=== PATIENT | male | born 1965 | race Caucasian/White ===

== ENCOUNTER 2019-06-15 04:39 | Observation (INO) | payer MEDICARE, OTHER ==
[2019-06-15] MEDS ORDERED: SODIUM CHLORIDE 0.9% 1,000 ML IV STA (04:47)
--- NOTE | 2019-06-15 05:02 | ED ---
Chest Pain HPI - General Source: patient, RN notes reviewed, old records reviewed Mode of arrival: ambulatory Limitations: no limitations - History of Present Illness MD Complaint: chest pain, other (Epigastric abdominal pain) -: hour(s) (5) Onset: during rest Pain Location: substernal Pain Radiation: abdomen Severity: moderate Severity scale (1-10): 5 Quality: sharp Consistency: constant Improves With: nothing Worsens With: nothing Anginal Symptoms: nausea Treatments Prior to Arrival: none <Paul Gonzalez - Last Filed: 06/15/19 07:23> <Lenny Hardin - Last Filed: 06/15/19 08:08> - General Chief Complaint: Nausea/Vomiting/Diarrhea Stated Complaint: Chest Pain/Nausea/Clammy Time Seen by Provider: 06/15/19 04:46 - History of Present Illness Initial Comments: This is a 53-year-old male the ER for evaluation of epigastric abdominal pain severe epigastric bowel pain and bloating with nausea no vomiting no shortness of breath patient's very anxious regarding this pain. Patient's no history of heart disease no history of surgery. No recent travel history or sick contacts. No fevers cough or congestion. Patient does have high blood pressure does have peripheral arterial disease. No history of heart disease. Patient states symptoms will "from Cipro 1 g of been persistent (Paul Gonzalez) - Related Data Home Medications Medication Instructions Recorded Confirmed Aspirin EC [Ecotrin] 162.5 mg PO QAM 06/05/16 06/15/19 Ranitidine HCl [Zantac] 75 mg PO QAM 06/15/19 06/15/19 Simvastatin [Zocor] 5 mg PO QAM 06/15/19 06/15/19 Allergies Allergy/AdvReac Type Severity Reaction Status Date / Time No Known Allergies Allergy Verified 06/15/19 07:28 Review of Systems ROS Other: All systems not noted in ROS Statement are negative. <Paul Gonzalez - Last Filed: 06/15/19 07:23> ROS Other: All systems not noted in ROS Statement are negative. <Lenny Hardin - Last Filed: 06/15/19 08:08> ROS Statement: Those systems with pertinent positive or pertinent negative responses have been documented in the HPI. EKG Findings - EKG Comments: EKG Findings:: EKG shows sinus rhythm rate of 70, PA 164, QRS 04, QTc 432 <Paul Gonzalez Last Filed: 06/15/19 07:23> Past Medical History Past Medical History: Hyperlipidemia Additional Past Medical History / Comment(s): re-occluded popiteal left, PAD History of Any Multi-Drug Resistant Organisms: None Reported Past Surgical History: Orthopedic Surgery Additional Past Surgical History / Comment(s): occluded popiteal repair - left Past Psychological History: No Psychological Hx Reported Smoking Status: Current every day smoker Past Alcohol Use History: Rare Past Drug Use History: Marijuana <Paul Gonzalez - Last Filed: 06/15/19 07:23> General Exam Limitations: no limitations General appearance: alert, in no apparent distress Head exam: Present: atraumatic, normocephalic, normal inspection Eye exam: Present: normal appearance, PERRL, EOMI. Absent: scleral icterus, conjunctival injection, periorbital swelling ENT exam: Present: normal exam, mucous membranes moist Neck exam: Present: normal inspection. Absent: tenderness, meningismus, lymphadenopathy Respiratory exam: Present: normal lung sounds bilaterally. Absent: respiratory distress, wheezes, rales, rhonchi, stridor Cardiovascular Exam: Present: regular rate, normal rhythm, normal heart sounds. Absent: systolic murmur, diastolic murmur, rubs, gallop, clicks GI/Abdominal exam: Present: soft, tenderness (Epigastric), normal bowel sounds. Absent: distended, guarding, rebound, rigid Extremities exam: Present: normal inspection, full ROM, normal capillary refill. Absent: tenderness, pedal edema, joint swelling, calf tenderness Back exam: Present: normal inspection Neurological exam: Present: alert, oriented X3, CN II-XII intact Psychiatric exam: Present: normal affect, normal mood Skin exam: Present: warm, dry, intact, normal color. Absent: rash <BrennasandraPaul whitlock - Last Filed: 06/15/19 07:23> Course <Paul Gonzalez Last Filed: 06/15/19 07:23> Vital Signs 06/15/19 06/15/19 06/15/19 04:42 05:43 07:18 Temperature 97.6 F 97.8 F Pulse Rate 86 69 76 Respiratory 24 17 18 Rate Blood Pressure 145/101 152/101 151/102 O2 Sat by Pulse 100 99 98 Oximetry - Reevaluation(s) Reevaluation #1: 06/15/19 07:18 Medical records reviewed (Paul Gonzalez) Reevaluation #2: 06/15/19 07:18 Patient's pain is improved controlled (Paul Gonzalez) Chest Pain MDM <Paul Gonzalez - Last Filed: 06/15/19 07:23> <Lenny Hardin - Last Filed: 06/15/19 08:08> - MDM 53 male the ER with severe anterior chest pain epigastric chest pain. Patient's history is PAD with surgery, patient be admitted for cardiac observation secondary significant history of atherosclerosis CTA chest is negative for dissection or PE (Paul Gonzalez) Patient care sign out to me by previous shift physician Dr. Baez. Final set follow-up with CT angios to rule out aortic dissection. CT angio of the chest is unremarkable. CT of the abdomen and pelvis shows no acute processes. There is an incidental finding of possible liver cyst and adrenal mass lesion. (Lenny Hardin) Critical Care Time Critical Care Time: Yes Total Critical Care Time: 31 <Paul Gonzalez - Last Filed: 06/15/19 07:23> Disposition Is patient prescribed a controlled substance at d/c from ED?: No <Paul Gonzalez - Last Filed: 06/15/19 07:23> <Lenny Hardin - Last Filed: 06/15/19 08:08> Clinical Impression: Peripheral vascular disease, Chest pain Disposition: ADMITTED IP TO THIS HOSP Condition: Undetermined
[2019-06-15] MEDS ORDERED: MORPHINE SULFATE 4 MG/ML SYRINGE IVP STA (05:07)
[2019-06-15 05:37] LABS: Basophils % (A) 0 %; Eosinophils # (A) 0.2 k/uL (0-0.7); Eosinophils % (A) 1 %; HCT 49.2 % (39.0-53.0); HGB 16.1 gm/dL (13.0-17.5); Lymphocytes # (A) 1.5 k/uL (1.0-4.8); Lymphocytes % (A) 13 %; MCH 29.3 pg (25.0-35.0); MCHC 32.7 g/dL (31.0-37.0); MCV 89.7 fL (80.0-100.0); Mean Platelet Volume 6.6; Monocytes # (A) 0.5 k/uL (0-1.0); Monocytes % (A) 4 %; Neutrophils # (A) 9.3 k/uL (1.3-7.7); Neutrophils % (A) 80 %; Platelet Count 329 k/uL (150-450); RBC 5.48 m/uL (4.30-5.90); RDW 13.4 % (11.5-15.5); WBC 11.6 k/uL (3.8-10.6)
--- NOTE | 2019-06-15 05:48 | XR ---
EXAM: XR Chest, 2 Views. CLINICAL HISTORY: Reason: Chest Pain TECHNIQUE: Frontal and lateral views of the chest. COMPARISON: No relevant prior studies available. FINDINGS: Lungs: Lung volumes are normal. There is no evidence of airspace consolidation. No pulmonary edema. Pleural spaces: Unremarkable. No pneumothorax. Heart: Unremarkable. No cardiomegaly. Mediastinum: No mediastinal widening or shift. Bones: Unremarkable. No acute fracture. IMPRESSION: No evidence of acute cardiopulmonary abnormality.
[2019-06-15 05:49] LABS: INR 0.9 (<1.2); Partial Thromboplastin Time 25.5 sec (22.0-30.0); Prothrombin Time 9.7 sec (9.0-12.0)
[2019-06-15] MEDS ORDERED: ONDANSETRON 4 MG/2 ML VIAL IVP STA (05:55)
[2019-06-15] MEDS ORDERED: LORazepam 2 MG/ML INJ IV STA (05:56)
[2019-06-15 06:27] LABS: ALT 25 U/L (21-72); AST 25 U/L (17-59); African American GFR (CKD) >90 (>60 ml/min/1.73 sqM); Albumin 4.7 g/dL (3.5-5.0); Alkaline Phosphatase 51 U/L (38-126); Anion Gap 13 mmol/L; Blood Urea Nitrogen 17 mg/dL (9-20); Calcium 10.4 mg/dL (8.4-10.2); Carbon Dioxide 21 mmol/L (22-30); Chloride 106 mmol/L (98-107); Creatine Kinase 127 U/L (55-170); Glucose 123 mg/dL (74-99); Potassium 4.2 mmol/L (3.5-5.1); Sodium 140 mmol/L (137-145); Total Bilirubin 0.5 mg/dL (0.2-1.3)
[2019-06-15 06:38] LABS: Creatine Kinase MB 0.5 ng/mL (0.0-2.4); Troponin I <0.012 ng/mL (0.000-0.034)
[2019-06-15] MEDS ORDERED: ASPIRIN 81 MG PO STA (07:24)
[2019-06-15] MEDS ORDERED: MAG HYDROX/AL HYDROX/SIMETH 30 ML, HYOSCYAMINE ELIXIR 10 ML, CIMETIDINE HCL 300 MG PO STA ×3 (07:24)
[2019-06-15] MEDS ORDERED: NITROGLYCERIN SL TABS 0.4 MG TAB SUBLINGUAL PRN (07:24)
--- NOTE | 2019-06-15 07:40 | CT ---
EXAMINATION TYPE: CT angio chest DATE OF EXAM: 06/15/2019 7:30 AM COMPARISON: HISTORY: Chest pain CT DLP: 436.9 mGycm Automated exposure control for dose reduction was used. CONTRAST: CTA scan of the thorax is performed with IV Contrast, patient injected with 100 mL of Isovue 370, pul monary embolism protocol. . FINDINGS: There are bullous changes in the upper lobes bilaterally. There is groundglass opacity in t he lower lobes bilaterally. This likely represents atelectatic change. There are 2 questionable subpl eural nodules on the left measuring 12.2 and 6.5 mm respectively. This may be simply part of the kimberly ent's atelectatic change. 2 pulmonary nodules cannot be excluded. A third, 5 mm subpleural nodule is noted in the right middle lobe best seen on image 106. There is no significant axillary, mediastinal or hilar adenopathy. There is no evidence of pulmonary embolus. The aorta is normal in caliber without evidence of dissection. There is no evidence of pleural or pericardial fluid. The heart is not enlarged. There is a small, sliding hiatal hernia. There is mild hypertrophic spondylosis within the spine. IMPRESSION: 1. THIS EXAMINATION IS NEGATIVE FOR PULMONARY EMBOLUS. 2. BULLOUS CHANGES IN THE UPPER LOBES BILATERALLY. 3. MULTIPLE QUESTIONABLE PULMONARY NODULES. SHORT-TERM FOLLOW-UP WOULD BE SUGGESTED.
--- NOTE | 2019-06-15 07:47 | CT ---
EXAMINATION TYPE: CT abdomen pelvis w con DATE OF EXAM: 06/15/2019 REFERENCE: NONE HISTORY: Pain HISTORY: Chest pain, nausea REFERENCE: NONE CT DLP: 715.4 mGy Automated exposure control for dose reduction was used. TECHNIQUE: Helical acquisition through the abdomen and pelvis was obtained following the oral ingesti on of without Oral Contrast and following intravenous administration of 100 mL of Isovue 370. The julianne a was reformatted in axial, coronal and sagittal projections. FINDINGS: Left lower lobe pulmonary nodules are not visualized on this examination. There is atelect atic change present at the lung bases. There is a small hiatal hernia present. Liver size is upper limits of normal. There is a 6.6 mm hypoattenuating lesion in the medial segment of the left lobe of the liver. This likely represents a cyst. The spleen and gallbladder are normal. The right adrenal gland is normal. There is a 1.9 cm left adrenal mass lesion. Both kidneys demonstrate function and appear morphologically normal. The pancreas is unremarkable. There is no significant retroperitoneal, iliac or inguinal adenopathy. The bladder is unremarkable. There is no significant diverticular change and there is no radiographic evidence of diverticulitis. The appendix is unremarkable. Small bowel loops are of normal caliber. There is no evidence of free fluid or free air. There is facet arthropathy and hypertrophic spondylosis within the spine. IMPRESSION: 1. NO ACUTE INFLAMMATORY ABNORMALITY. 2. NORMAL APPENDIX. 3. SMALL HIATAL HERNIA. 4. PROBABLE SMALL CYST WITHIN THE LEFT LOBE OF THE LIVER. 5 1.9 CM LEFT ADRENAL MASS LESION. 6. DEGENERATIVE CHANGE WITHIN THE SPINE.
--- NOTE | 2019-06-15 09:55 | CONS ---
CONSULTATION CHIEF COMPLAINT: Epigastric pain. This is a 53-year-old gentleman with history of dyslipidemia who presented to hospital complaining of epigastric discomfort. It is moderate in intensity, unrelated to exertion, unassociated with diaphoresis, without any clear-cut radiation. He has tenderness in the epigastric area. He had an EKG that showed sinus rhythm and is within normal limits and a CT scan of the chest that is negative for pulmonary embolism. One set of troponin is negative. His coronary risk factors are in the form of dyslipidemia and smoking. PAST MEDICAL HISTORY: Significant for dyslipidemia, PAD. MEDICATIONS: Medications include: 1. Zantac. 2. Zocor. 3. Aspirin. ALLERGIES: There are NO KNOWN DRUG ALLERGIES. FAMILY HISTORY: Negative for premature coronary artery disease. SOCIAL HISTORY: Significant for smoking. There is no history of EtOH abuse. He smokes marijuana. REVIEW OF SYSTEMS: HEENT is unremarkable. CARDIAC: As described above. RESPIRATORY: As described above. GI: Significant for epigastric pain. GENITOURINARY: Negative. ALLERGY/IMMUNOLOGIC: Negative. SKIN: Negative. MUSCULOSKELETAL: Negative. ENDOCRINE: Negative. DERMATOLOGICAL: Negative. CONSTITUTIONAL: Negative. ONCOLOGICAL: Negative. Rest of the system review is not relevant. PHYSICAL EXAMINATION: Comfortable at rest. Vital signs are stable. There is no jugular venous distention. Carotid upstroke is normal. There is no bruit. Chest exam reveals good air entry bilaterally. Heart exam reveals first and second heart sounds. No gallop. No murmur. No rub. Abdomen is soft, nontender. Examination of extremities did not reveal any edema. Peripheral pulses are felt. 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 ASSESSMENT: 1. Atypical chest pain. 2. Dyslipidemia. PLAN: Patient's epigastric pain is probably noncardiac in origin. I will obtain a 2D echo to assess LV function and wall motion. I will obtain two more sets of troponins. If this workup is negative, from cardiac standpoint he can be discharged home and arrange an outpatient stress test. The exact etiology for his epigastric pain is unclear. Primary will address this issue. MMAMBROCIOL / DARLENEN: [id number] /
--- NOTE | 2019-06-15 15:02 | P.HPIM ---
History of Present Illness This is a pleasant 53 years old male with past medical history of hyperlipidemia peripheral vascular disease, related to his long history of smoking cigarettes for 35 years that he had to quit 3 years ago because of his vascular disease. He follows up with Dr. Dudley and the [facility]. He presents this time because of abdominal pain of one-day duration. Yesterday at midnight patient started having epigastric abdominal pain, nonspecific nonradiating, 7-8/10 in severity coming down to 3/10. Associated with several times of nausea vomiting about 3-4 times per day with a green bullous vomitus and no blood. He had 2 firm bowel movement yesterday and none today. He hasn't eaten anything since yesterday. He feels hungry and he wants to eat. Patient says about 2 months ago he started having heartburn, his sister oliver ribed him Zantac which is confirmed with his doctor. About 2 weeks ago his have another heartburn and yesterday he have with these complaints as above. Vitals stable, blood pressure on the high side 149/91, he is slightly bradycardic at 54, afebrile. Labs showing mild leukocytosis at 11.6 K, INR 0.9, hemoglobin 16.1, creatinine and similar phallus within normal limits. Troponins x2 are negative. Liver enzymes not elevated. Lipase 95. EKG showing normal sinus rhythm at 70. CTA of the chest: No pulmonary embolus, small pulmonary nodules found 5 mm, 6.5 and 12.2 mm. Chest x-ray: No acute event. CT of the abdomen and pelvis with contrast: Small liver cyst, 1.5 cm left adrenal mass The emergency room patient was treated with pain medicine, Zofran, aspirin and IV fluid, at 100 mL per hour. Assistant Community Director already evaluated the patient, recommended echo and cardiac enzymes, and today they are negative patient Be discharged for outpatient stress test. Review of Systems CONSTITUTIONAL: No fever, no malaise, no fatigue. HEENT: No recent visual problems or hearing problems. Denied any sore throat. CARDIOVASCULAR: No orthopnea, PND, no palpitations, no syncope. PULMONARY: No shortness of breath, no cough, no hemoptysis. GASTROINTESTINAL: No diarrhea, no nausea, no vomiting, no abdominal pain. Normoactive bowel sounds. NEUROLOGICAL: No headaches, no weakness, no numbness. HEMATOLOGICAL: Denies any bleeding or petechiae. GENITOURINARY: Denies any burning micturition, frequency, or urgency. MUSCULOSKELETAL/RHEUMATOLOGICAL: Denies any joint pain, swelling, or any muscle pain. ENDOCRINE: Denies any polyuria or polydipsia. Past Medical History Past Medical History: Hyperlipidemia Additional Past Medical History / Comment(s): re-occluded popiteal left, PAD History of Any Multi-Drug Resistant Organisms: None Reported Past Surgical History: Orthopedic Surgery Additional Past Surgical History / Comment(s): occluded popiteal repair - left, left rotator cuff repair Past Psychological History: No Psychological Hx Reported Smoking Status: Current every day smoker Past Alcohol Use History: Rare Past Drug Use History: Marijuana Medications and Allergies Home Medications Medication Instructions Recorded Confirmed Type Aspirin EC [Ecotrin] 162.5 mg PO QAM 06/05/16 06/15/19 History Ranitidine HCl [Zantac] 75 mg PO QAM 06/15/19 06/15/19 History Simvastatin [Zocor] 5 mg PO QAM 06/15/19 06/15/19 History Allergies Allergy/AdvReac Type Severity Reaction Status Date / Time No Known Allergies Allergy Verified 06/15/19 07:28 Physical Exam Vitals: Vital Signs Temp Pulse Pulse Resp BP BP Pulse Ox 06/15/19 12:00 98 F 54 L 16 149/91 97 06/15/19 10:48 98 06/15/19 08:48 98.2 F 57 L 16 152/91 99 06/15/19 08:27 76 18 133/95 98 06/15/19 07:18 97.8 F 76 18 151/102 98 06/15/19 05:43 69 17 152/101 99 06/15/19 04:42 97.6 F 86 24 145/101 100 Intake and Output 06/14/19 06/15/19 06/15/19 22:59 06:59 14:59 Other: Voiding Method Toilet Weight 102.058 kg GENERAL: The patient is alert and oriented x3, not in any acute distress. Well developed, well nourished. HEENT: Pupils are round and equally reacting to light. EOMI. No scleral icterus. No conjunctival pallor. Normocephalic, atraumatic. No pharyngeal erythema. No thyromegaly. CARDIOVASCULAR: S1 and S2 present. No murmurs, rubs, or gallops. PULMONARY: Chest is clear to auscultation, no wheezing or crackles. -ABDOMEN: Soft, mild epigastric tenderness, no guarding or rebound tenderness, nondistended, normoactive bowel sounds. No palpable organomegaly. MUSCULOSKELETAL: No joint swelling or deformity. EXTREMITIES: No cyanosis, clubbing, or pedal edema. NEUROLOGICAL: Gross neurological examination did not reveal any focal deficits. SKIN: No rashes. Results CBC & Chem 7: 06/15/19 04:57 06/15/19 04:57 Labs: Abnormal Lab Results - Last 24 Hours (Table) 06/15/19 06/15/19 Range/Units 04:57 04:57 WBC 11.6 H (3.8-10.6) k/uL Neutrophils # 9.3 H (1.3-7.7) k/uL Carbon Dioxide 21 L (22-30) mmol/L Glucose 123 H (74-99) mg/dL Calcium 10.4 H (8.4-10.2) mg/dL Thrombosis Risk Factor Assmnt - Choose All That Apply Any of the Below Risk Factors Present?: Yes Each Factor Represents 1 point: Age 41-60 years Other Risk Factors: No Thrombosis Risk Factor Assessment Total Risk Factor Score: 1 Thrombosis Risk Factor Assessment Level: Low Risk Assessment and Plan Assessment: Epigastric abdominal pain and tenderness with recurrent nausea and vomiting 3 pulmonary nodules of 5, 6.5, and 12.2 mm respectively left adrenal mass of 1.9 cm Hyperlipidemia History of peripheral vascular disease Plan: This is a pleasant 53 years old male who presents with epigastric abdominal pain and tenderness. Continue with nothing by mouth, IV fluids and pain medication. Patient feels hungry and he wants to eat, we might start him on a clear liquid diet upon patient request and make him nothing by mouth after midnight again. We'll call GI consult for evaluation and order a liver ultrasound. 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 Risk including but not limited to cancer are explained to the patient and he verbalized understanding and acceptance. Labs and medication were reviewed.. Continue same treatment. Continue with symptomatic treatment. Resume home medication. Monitor lytes and vitals. DVT and GI prophylaxis. Further recommendations of the clinical course of the patie nt DVT prophylaxis: Subcutaneous heparin GI Prophylaxis: Protonix Prognosis is guarded
[2019-06-15] MEDS: ATORVASTATIN 80 MG TAB PO SCH (15:13)
[2019-06-15] MEDS: PANTOPRAZOLE 40 MG/10 ML VIAL IVP SCH (15:14)
[2019-06-15] MEDS: ONDANSETRON 4 MG/2 ML VIAL IVP PRN ×2 (15:17→20:02)
[2019-06-15] MEDS: HEPARIN SODIUM,PORCINE 5,000 UNIT/ML 1 ML VIAL SQ SCH (20:02)
[2019-06-15] MEDS ORDERED: MELATONIN 5 MG TABLET PO STA (20:11)
--- NOTE | 2019-06-15 20:12 | US ---
EXAMINATION TYPE: US liver DATE OF EXAM: 06/15/2019 COMPARISON: CT 2019 CLINICAL HISTORY: 53-year-old male epigastric pain and tenderness. Epigastric pain and N/V x 1 day TECHNIQUE: Multiple sonographic images of the right upper quadrant are obtained. FINDINGS: EXAM MEASUREMENTS: Liver Length: 19.9 cm Gallbladder Wall: 0.2 cm CBD: 0.3 cm Right Kidney: 11.5 x 4.7 x 5.3 cm Pancreas: obscured by overlying midline bowel gas Liver: enlarged, heterogeneous with 1.5cm hypoechoic area adjacent to gallbladder likely focal fatty sparing, 1.0cm cystic area left lobe Gallbladder: wnl Evidence for sonographic Castro's sign: no CBD: visualized portions wnl, limited by overlying bowel gas Right Kidney: No hydronephrosis. IMPRESSION: 1. Hepatomegaly (19.9 cm). Focal hypoechoic area adjacent to the gallbladder fossa probably represent s some focal fatty sparing in the setting of mild hepatic steatosis. 2. No cholelithiasis or biliary ductal dilatation. 3. A 6 month follow-up CT adrenal mass protocol can reassess the left adrenal nodule seen on CT of same day. Statistically, most likely a benign adrenal adenoma.
[2019-06-15] MEDS: MORPHINE SULFATE 2 MG/ML SYRINGE IVP PRN (20:57)
[2019-06-15] MEDS: SODIUM CHLORIDE 0.9% 1,000 ML IV SCH ×2 (20:59)
[2019-06-16] MEDS: SODIUM CHLORIDE 0.9% 1,000 ML IV SCH (05:49)
[2019-06-16 07:40] VITALS: RESP 16
[2019-06-16 08:03] LABS: Basophils # (A) 0.1 k/uL (0-0.2); Basophils % (A) 0 %; Eosinophils # (A) 0.7 k/uL (0-0.7); Eosinophils % (A) 6 %; HCT 46.5 % (39.0-53.0); HGB 15.1 gm/dL (13.0-17.5); Lymphocytes # (A) 2.1 k/uL (1.0-4.8); Lymphocytes % (A) 19 %; MCH 30.1 pg (25.0-35.0); MCHC 32.5 g/dL (31.0-37.0); MCV 92.4 fL (80.0-100.0); Mean Platelet Volume 6.4; Monocytes # (A) 0.7 k/uL (0-1.0); Monocytes % (A) 7 %; Neutrophils # (A) 7.5 k/uL (1.3-7.7); Neutrophils % (A) 67 %; Platelet Count 294 k/uL (150-450); RBC 5.03 m/uL (4.30-5.90); RDW 13.4 % (11.5-15.5); WBC 11.2 k/uL (3.8-10.6)
[2019-06-16 08:10] LABS: African American GFR (CKD) >90 (>60 ml/min/1.73 sqM); Anion Gap 9 mmol/L; Blood Urea Nitrogen 13 mg/dL (9-20); Calcium 8.9 mg/dL (8.4-10.2); Carbon Dioxide 25 mmol/L (22-30); Chloride 106 mmol/L (98-107); Cholesterol 216 mg/dL (<200); Glucose 107 mg/dL (74-99); HDL Cholesterol 42 mg/dL (40-60); LDL Cholesterol,Calculated 148 mg/dL (0-99); Potassium 4.1 mmol/L (3.5-5.1); Sodium 140 mmol/L (137-145); Triglycerides 131 mg/dL (<150)
[2019-06-16] MEDS: PANTOPRAZOLE 40 MG/10 ML VIAL IVP SCH (08:32)
[2019-06-16] MEDS ORDERED: ASPIRIN 325 MG TAB PO SCH (09:00)
--- NOTE | 2019-06-16 10:43 | PN ---
PROGRESS NOTE Rafiq is a 53-year-old gentleman who was admitted to hospital with epigastric pain and ruled out for myocardial infarction and is currently undergoing GI workup. On exam this morning, he appears comfortable at rest. His GI symptoms have improved. On exam, vital signs are stable. Chest exam reveals good air entry bilaterally. Heart exam reveals first and second heart sounds. No gallop. Exam of extremities did not reveal any edema. Peripheral pulses are felt. ASSESSMENT: 1. Atypical chest pain. 2. Epigastric pain. PLAN: I will review the echocardiogram. When he is stable GI knight, he can be discharged home and arrange outpatient followup. We will do an outpatient stress test on him. MMODL / IJN: [id number] /
--- NOTE | 2019-06-16 10:54 | ECHOF ---
Referral Reason:epigastric pain MEASUREMENTS -------- HEIGHT: 190.5 cm WEIGHT: 102.1 kg BP: 152/91 RVIDd: 3.4 cm (< 3.3) IVSd: 1.1 cm (0.6 - 1.1) LVIDd: 5.3 cm (3.9 - 5.3) LVPWd: 1.0 cm (0.6 - 1.1) IVSs: 1.8 cm LVIDs: 3.0 cm LVPWs: 1.4 cm LA Diam: 3.1 cm (2.7 - 3.8) LAESV Index (A-L): 20.70 ml/m Ao Diam: 3.5 cm (2.0 - 3.7) AV Cusp: 2.0 cm (1.5 - 2.6) MV EXCURSION: 17.007 mm (> 18.000) MV EF SLOPE: 79 mm/s (70 - 150) EPSS: 0.9 cm MV E Dhiraj: 0.84 m/s MV DecT: 228 ms MV A Dhiraj: 0.62 m/s MV E/A Ratio: 1.36 RAP: 5.00 mmHg RVSP: 23.43 mmHg FINDINGS -------- Sinus rhythm. This was a technically adequate study. The left ventricular size is normal. There is borderline concentric left ventricular hypertrophy. Overall left ventricular systolic function is normal with, an EF between 60 - 65 %. The right ventricle is mildly enlarged. Normal LA size by volume 22+/-6 ml/m2. The right atrium is normal in size. Interatrial and interventricular septum intact. The aortic valve is trileaflet and appears structurally normal. The mitral valve is normal. Mild tricuspid regurgitation present. Right ventricular systolic pressure is normal at < 35 mmHg. There is no pulmonic regurgitation present. The aortic root size is normal. Normal inferior vena cava with normal inspiratory collapse consistent with estimated right atrial pre ssure of 5 mmHg. There is no pericardial effusion. CONCLUSIONS -------- 1. Sinus rhythm. 2. This was a technically adequate study. 3. The left ventricular size is normal. 4. There is borderline concentric left ventricular hypertrophy. 5. Overall left ventricular systolic function is normal with, an EF between 60 - 65 %. 6. The right ventricle is mildly enlarged. 7. Normal LA size by volume 22+/-6 ml/m2. 8. The right atrium is normal in size. 9. Interatrial and interventricular septum intact. 10. The aortic valve is trileaflet and appears structurally normal. 11. The mitral valve is normal. 12. Mild tricuspid regurgitation present. 13. Right ventricular systolic pressure is normal at < 35 mmHg. 14. There is no pulmonic regurgitation present. 15. The aortic root size is normal. 16. Normal inferior vena cava with normal inspiratory collapse consistent with estimated right atrial pressure of 5 mmHg. 17. There is no pericardial effusion. KEYMODULE ASSEMBLY MACHINE TENDER: Christelle Seo RDCS
[2019-06-16] MEDS: ATORVASTATIN 80 MG TAB PO SCH (12:00)
[2019-06-16] MEDS: HEPARIN SODIUM,PORCINE 5,000 UNIT/ML 1 ML VIAL SQ SCH ×2 (12:00→19:53)
--- NOTE | 2019-06-16 18:11 | P.CONS ---
History of Present Illness - Reason for Consult Consult date: 06/16/19 Epigastric abdominal pain Requesting physician: Javi Cherry - Chief Complaint Epigastric abdominal pain - History of Present Illness 53-year-old male with a medical history significant for hyperlipidemia, peripheral vascular disease, previous tobacco abuse as well as recent history of GERD who presented to the hospital with epigastric abdominal pain. He reports that he had suffered similar pain but milder in intensity a few months back at which time he was started on ranitidine for which he takes 75 mg daily. He thought that the symptoms were well controlled however reports waking up at midnight prior to presentation with severe 7 out of 8 epigastric abdominal pain. No radiation of the pain. But he did have associated nausea and vomiting. No change in bowel habits reported. He has not tried any PPI therapy in the past. He has no prior history of EGD or colonoscopy reported. No history of peptic ulcer disease. He does take 0.5 aspirin daily. Laboratory evaluation on presentation was significant for WBC 11.2, hemoglobin 15.1, platelet count 294,0 00, total bilirubin 0.5, alkaline phosphatase 51, AST 25 and MALT 25. Patient currently reporting the pain is improved. No further nausea or vomiting. No melena reported. He has tolerated his diet. Review of Systems REVIEW OF SYSTEMS: CONSTITUTIONAL: Denies any fevers, chills, weight change or fatigue. CARDIOVASCULAR: Denies any chest pain, palpitations high or low blood pressures RESPIRATORY: Denies any shortness of breath, hemoptysis or cough. GENITOURINARY: No dysuria or hematuria. MUSCULOSKELETAL: No weakness reported. SKIN: Denies any new rashes or lesions, jaundice or pallor. PSYCHIATRIC: Denies any depression or anxiety. NEUROLOGY: Denies headache, denies any new focal deficits. EARS/NOSE/THROAT: No recent hearing change, congestion, nasal discharge or sore throat. EYES: No pain in eyes, discharge or change in vision. GASTROINTESTINAL: As per HPI. Past Medical History Past Medical History: Hyperlipidemia Additional Past Medical History / Comment(s): re-occluded popiteal left, PAD History of Any Multi-Drug Resistant Organisms: None Reported Past Surgical History: Orthopedic Surgery Additional Past Surgical History / Comment(s): occluded popiteal repair - left, left rotator cuff repair Past Psychological History: No Psychological Hx Reported Smoking Status: Current every day smoker Past Alcohol Use History: Rare Past Drug Use History: Marijuana Medications and Allergies Home Medications Medication Instructions Recorded Confirmed Type Aspirin EC [Ecotrin] 162.5 mg PO QAM 06/05/16 06/15/19 History Ranitidine HCl [Zantac] 75 mg PO QAM 06/15/19 06/15/19 History Simvastatin [Zocor] 5 mg PO QAM 06/15/19 06/15/19 History Allergies Allergy/AdvReac Type Severity Reaction Status Date / Time No Known Allergies Allergy Verified 06/15/19 07:28 Physical Exam Vitals: Vital Signs Temp Pulse Resp BP BP Pulse Ox 06/16/19 15:54 98.1 F 67 16 138/56 97 06/16/19 12:29 98 06/16/19 07:39 98.5 F 67 16 122/66 97 06/16/19 03:46 98.8 F 55 L 18 135/84 97 06/16/19 00:00 98.1 F 66 18 148/77 96 06/15/19 19:40 98.4 F 62 18 154/74 95 Intake and Output 06/16/19 06/16/19 06/16/19 06:59 14:59 22:59 Other: Voiding Method Toilet Toilet Toilet # Voids 2 1 1 On physical examination, patient appears comfortable in no apparent distress. HEAD: Normocephalic, atraumatic. EYES: No scleral icterus. No conjunctival injection. MOUTH: No lesions, tongue midline. NECK: Trachea midline, no gross abnormalities. CHEST: Clear to auscultation with no wheezing or rhonchi appreciated. HEART: Regular rate and rhythm. ABDOMEN: Soft, obese. Bowel sounds are positive. No organomegaly. No guarding or rigidity. EXTREMITIES: No pedal edema. SKIN: No rashes, no jaundice. NEUROLOGIC: Alert and oriented x3. No focal deficits. Results CBC & Chem 7: 06/16/19 07:45 06/16/19 07:45 Labs: Abnormal Lab Results - Last 24 Hours (Table) 06/16/19 06/16/19 Range/Units 07:45 07:45 WBC 11.2 H (3.8-10.6) k/uL Glucose 107 H (74-99) mg/dL Cholesterol 216 H (<200) mg/dL LDL Cholesterol, Calc 148 H (0-99) mg/dL CT scan - abdomen: report reviewed (Computed tomography scan abdomen significant for adrenal mass lesion, hepatic cyst, and small hiatal hernia.) Assessment and Plan (1) Epigastric abdominal pain Narrative/Plan: 53-year-old who presented with epigastric abdominal pain. Recently started on ranitidine 75 mg daily for GERD. Symptoms were more intense and previously reported. Denied any change in bowel habits, blood per rectum or melena. The patient has not been on PPI therapy in the past CT of the abdomen was significant for a small hepatic cysts, small hiatal hernia and adrenal mass lesion. Symptoms likely related to uncontrolled gastroesophageal reflux disease with the patient reporting eating fatty foods including chowder and hotdogs prior to symptoms at night. Differential also includes peptic ulcer disease, functional bowel disorder or other etiology. Cardiac workup has been negative today. Current Visit: Yes Status: Acute Code(s): R10.13 - EPIGASTRIC PAIN SNOMED Code(s): 59192653 (2) GERD (gastroesophageal reflux disease) Current Visit: Yes Status: Acute Code(s): K21.9 - GASTRO-ESOPHAGEAL REFLUX DISEASE WITHOUT ESOPHAGITIS SNOMED Code(s): 121694364 Plan: Supportive care Okay for diet as tolerated GERD lifestyle modifications discussed Would recommend Protonix daily with ranitidine at night Patient is due for [facility] which he [facility], would recommend EGD at that time Thank you for allowing us to participate in the care of this patient, the GI service will stand by, please call us back with any questions or concerns
[2019-06-16] MEDS: MORPHINE SULFATE 2 MG/ML SYRINGE IVP PRN (19:53)
[2019-06-16] MEDS ORDERED: FAMOTIDINE 20 MG TAB PO SCH (21:00)
[2019-06-17 07:44] VITALS: BP 165/99; PULSE 65; TEMP 97.7
[2019-06-17] MEDS: PANTOPRAZOLE 40 MG/10 ML VIAL IVP SCH (08:29)
[2019-06-17] MEDS: ATORVASTATIN 80 MG TAB PO SCH (08:29)
[2019-06-17] MEDS: HEPARIN SODIUM,PORCINE 5,000 UNIT/ML 1 ML VIAL SQ SCH (08:30)
[2019-06-17] MEDS: MORPHINE SULFATE 2 MG/ML SYRINGE IVP PRN (08:41)
[2019-06-17] MEDS ORDERED: ASPIRIN 81 MG PO SCH (09:00)
[2019-06-17] MEDS ORDERED: METOPROLOL TARTRATE 12.5 MG TAB PO SCH (09:00)
--- NOTE | 2019-06-17 11:36 | P.PN ---
Subjective This is a pleasant 53 years old male with past medical history of hyperlipidemia peripheral vascular disease, related to his long history of smoking cigarettes for 35 years that he had to quit 3 years ago because of his vascular disease. He follows up with Dr. Dudley and the [facility]. He presents this time because of abdominal pain of one-day duration. Yesterday at midnight patient started having epigastric abdominal pain, nonspecific nonradiating, 7-8/10 in severity coming down to 3/10. Associated with several times of nausea vomiting about 3-4 times per day with a green bullous vomitus and no blood. He had 2 firm bowel movement yesterday and none today. He hasn't eaten anything since yesterday. He feels hungry and he wants to eat. Patient says about 2 months ago he started having heartburn, his sister prescribed him Zantac which is confirmed with his doctor. About 2 weeks ago his have another heartburn and yesterday he have with these complaints as above. Vitals stable, blood pressure on the high side 149/91, he is slightly bradycardic at 54, afebrile. Labs showing mild leukocytosis at 11.6 K, INR 0.9, hemoglobin 16.1, creatinine and similar phallus within normal limits. Troponins x2 are negative. Liver enzymes not elevated. Lipase 95. EKG showing normal sinus rhythm at 70. CTA of the chest: No pulmonary embolus, small pulmonary nodules found 5 mm, 6.5 and 12.2 mm. Chest x-ray: No acute event. CT of the abdomen and pelvis with contrast: Small liver cyst, 1.5 cm left adrenal mass The emergency room patient was treated with pain medicine, Zofran, aspirin and IV fluid, at 100 mL per hour. Parking Enforcement Manager already evaluated the patient, recommended echo and cardiac enzymes, and today they are negative patient Be discharged for outpatient stress test. 03/17/2019 ( Date of service for this note) pt is feeling better , less epigastric pain, no nausea or vomiting , he is tolerated diet well and is advanced as tolerated , he is hemodynamically stable. leukocytosis is improving . case discussed with GI team , continue with medical management with symptomatic treatment and antacid ros CONSTITUTIONAL: No fever, no malaise, no fatigue. HEENT: No recent visual problems or hearing problems. Denied any sore throat. CARDIOVASCULAR: No orthopnea, PND, no palpitations, no syncope. PULMONARY: No shortness of breath, no cough, no hemoptysis. GASTROINTESTINAL: No diarrhea, no nausea, no vomiting, no abdominal pain. Normoactive bowel sounds. NEUROLOGICAL: No headaches, no weakness, no numbness. HEMATOLOGICAL: Denies any bleeding or petechiae. GENITOURINARY: Denies any burning micturition, frequency, or urgency. MUSCULOSKELETAL/RHEUMATOLOGICAL: Denies any joint pain, swelling, or any muscle pain. ENDOCRINE: Denies any polyuria or polydipsia. Active Medications Generic Name Dose Route Start Last Admin Trade Name Freq PRN Reason Stop Dose Admin Aspirin 81 mg 06/17/19 09:00 06/17/19 08:29 Aspirin PO 81 mg DAILY ADAIR Administration Atorvastatin Calcium 80 mg 06/15/19 09:00 06/17/19 08:29 Lipitor PO Not Given DAILY ADAIR Famotidine 40 mg 06/16/19 21:00 06/16/19 19:53 Pepcid PO 40 mg HS ADAIR Administration Heparin Sodium (Porcine) 5,000 unit 06/15/19 21:00 06/17/19 08:30 Heparin SQ 5,000 unit Q12HR ADAIR Administration Sodium Chloride 1,000 mls @ 75 mls/hr 06/15/19 07:30 06/16/19 05:49 Saline 0.9% IV Not Given .[id number] [facility] Metoprolol Tartrate 12.5 mg 06/17/19 09:00 06/17/19 08:29 Lopressor PO 12.5 mg BID ADAIR Administration Morphine Sulfate 2 mg 06/15/19 15:01 06/17/19 08:41 Morphine Sulfate (Inj) IVP 2 mg Q6H PRN Administration Pain/Discomfort Nitroglycerin 0.4 mg 06/15/19 07:24 Nitrostat SUBLINGUAL Q5M PRN Chest Pain Ondansetron HCl 4 mg 06/15/19 15:07 06/15/19 20:02 Zofran IVP 4 mg Q6HR PRN Administration Nausea And Vomiting Pantoprazole Sodium 40 mg 06/15/19 15:15 06/17/19 08:29 Protonix IVP 40 mg DAILY ADAIR Administration Objective - Vital Signs Vital signs: Vital Signs Temp 97.7 F 06/17/19 07:43 Pulse 65 06/17/19 08:00 Resp 16 06/17/19 08:00 BP 165/99 06/17/19 07:43 Pulse Ox 99 06/17/19 07:43 Intake & Output 06/16/19 06/17/19 06/17/19 18:59 06:59 18:59 Intake Total 600 Balance 600 Intake: Intake, IV Titration 600 Amount Sodium Chloride 0.9% 1, 600 000 ml @ 75 mls/hr IV . [id number] [facility] Rx#:[id number] Other: Voiding Method Toilet Toilet Toilet # Voids 1 1 1 - Exam GENERAL: The patient is alert and oriented x3, not in any acute distress. Well developed, well nourished. HEENT: Pupils are round and equally reacting to light. EOMI. No scleral icterus. No conjunctival pallor. Normocephalic, atraumatic. No pharyngeal erythema. No thyromegaly. CARDIOVASCULAR: S1 and S2 present. No murmurs, rubs, or gallops. PULMONARY: Chest is clear to auscultation, no wheezing or crackles. -ABDOMEN: Soft, mild epigastric tenderness, no guarding or rebound tenderness, nondistended, normoactive bowel sounds. No palpable organomegaly. MUSCULOSKELETAL: No joint swelling or deformity. EXTREMITIES: No cyanosis, clubbing, or pedal edema. NEUROLOGICAL: Gross neurological examination did not reveal any focal deficits. SKIN: No rashes. - Labs CBC & Chem 7: 06/16/19 07:45 06/16/19 07:45 Assessment and Plan Assessment: Epigastric abdominal pain and tenderness with recurrent nausea and vomiting 3 pulmonary nodules of 5, 6.5, and 12.2 mm respectively left adrenal mass of 1.9 cm Hyperlipidemia History of peripheral vascular disease Plan: This is a pleasant 53 years old male who presents with epigastric abdominal pain and tenderness. Continue with nothing by mouth, IV fluids and pain medication. advance diet as tolerated. GI consult input is appreciated. Pain management Patient was informed about 3 pulmonary nodules and left adrenal mass, with recommendation for him to follow-up with his pcp doctor and electrical project engineer as an outpatient for reevaluation. Risk including but not limited to cancer are explained to the patient and he verbalized understanding and acceptance. Labs and medication were reviewed.. Continue same treatment. Continue with symptomatic treatment. Resume home medication. Monitor lytes and vitals. DVT and GI prophylaxis. Further recommendations of the clinical course of the patient pt problems and management plan was discussed with him and he verbalized understanding and acceptance DVT prophylaxis: Subcutaneous heparin GI Prophylaxis: Protonix pt is counseled whenever he is discharge to follow up with GI team and he agrees, risks including but not limited to peptic ulcer disease ,GERD and cancer are explained for the pt and he verbalized understanding and acceptance also pt is counseled to follow up with his pcp in one week and he agrees Prognosis is guarded addendum (on next day of writing this note, monday06/17/2019) i called the [facility] and unfortunately was not available today , so the office referred me to [facility] and i told her about his presentation and the need for outpt follow up with [employer]orer [employer] for his possible GERD and liver lesion . also for electrical project engineer for his lung nodules, and general surgeon or repeat US of the abd for follow up of his left adrenal mass , and she kindly took note of these and she is going to inform tomorrow when he is back . also the office are all booked and they will try to find a spot and call him soon.
--- NOTE | 2019-06-17 11:51 | P.PN ---
Subjective This is a pleasant 53-year-old male past medical history significant for dyslipidemia, peripheral vascular disease and chronic nicotine dependence. He denies prior history of CAD. Currently maintained on atorvastatin 80 mg daily and aspirin 81 mg daily. He is seen and examined resting comfortably in bed in no acute distress. He has been seen by Dr Lares and started on protonix. He denies any further symptoms of chest or epigastric discomfort. Blood pressure 165/99 heart rate 65. GENERAL: Well-appearing, well-nourished and in no acute distress. NECK: Supple without JVD or thyromegaly. LUNGS: Breath sounds clear to auscultation bilaterally. Respiration equal and unlabored. No wheezes, rales or rhonchi. HEART: Regular rate and rhythm without murmurs, rubs or gallops. S1 and S2 heard. EXTREMITIES: Normal range of motion, no edema. No clubbing or cyanosis. Peripheral pulses intact. ASSESSMENT Chest pain, atypical. An acute event has been ruled out. Epigastric pain Hypertension Dyslipidemia PLAN Initiate on small dose of beta sharif. Overall stable from a cardiac perspective. Outpatient stress testing once his endoscopies are complete. Follow up with Dr. Vasquez in 2 weeks. Nurse Practitioner note has been reviewed, I agree with a documented findings and plan of care. Patient was seen and examined. Objective - Vital Signs Vital signs: Vital Signs Temp 97.7 F 06/17/19 07:43 Pulse 65 06/17/19 08:00 Resp 16 06/17/19 08:00 BP 165/99 06/17/19 07:43 Pulse Ox 99 06/17/19 07:43 Intake & Output 06/16/19 06/17/19 06/17/19 18:59 06:59 18:59 Intake Total 600 Balance 600 Intake: Intake, IV Titration 600 Amount Sodium Chloride 0.9% 1, 600 000 ml @ 75 mls/hr IV . [id number] ADAIR Rx#:[id number] Other: Voiding Method Toilet Toilet Toilet # Voids 1 1 1 - Labs CBC & Chem 7: 06/16/19 07:45 06/16/19 07:45
--- NOTE | 2019-06-17 15:19 | P.DS ---
Providers Date of admission: 06/15/19 07:24 Attending physician: Fany Mirza Consults: 06/15/19 07:24 Consult Physician Urgent Consulting Provider: Helena Oconnor Consult Reason/Comments: cp Do you want consulting provider notified?: Yes Primary care physician: [facility] Hospital Course: 53-year-old the female was admitted for chest pain appears to be secondary to peptic ulcer disease or gastritis. Rule out acute current syndromes, ruled out pulmonary embolism patient does have significant peripheral vascular disease for which patient is on a statin and aspirin. Patient was discharged on 2 weeks of her Prilosec after that he can resume his ranitidine. PHYSICAL EXAMINATION: GENERAL: The patient is alert and oriented x3, not in any acute distress. Well developed, well nourished. HEENT: Pupils are round and equally reacting to light. EOMI. No scleral icterus. No conjunctival pallor. Normocephalic, atraumatic. No pharyngeal erythema. No thyromegaly. CARDIOVASCULAR: S1 and S2 present. No murmurs, rubs, or gallops. PULMONARY: Chest is clear to auscultation, no wheezing or crackles. ABDOMEN: Soft, nontender, nondistended, normoactive bowel sounds. No palpable organomegaly. MUSCULOSKELETAL: No joint swelling or deformity. EXTREMITIES: No cyanosis, clubbing, or pedal edema. NEUROLOGICAL: Gross neurological examination did not reveal any focal deficits. SKIN: No rashes. Please refer to Dr. bird dictation for further details of hospitalization course Patient Condition at Discharge: Undetermined Plan - Discharge Summary Discharge Rx Participant: No New Discharge Prescriptions: New Omeprazole [PriLOSEC] 40 mg PO AC-BRKFST #14 capsule. Discontinued Ranitidine HCl [Zantac] 75 mg PO QAM No Action Aspirin EC [Ecotrin] 162.5 mg PO QAM Simvastatin [Zocor] 5 mg PO QAM Discharge Medication List Aspirin EC [Ecotrin] 162.5 mg PO QAM 06/05/16 [History] Simvastatin [Zocor] 5 mg PO QAM 06/15/19 [History] Omeprazole [PriLOSEC] 40 mg PO AC-BRKFST #14 capsule. 06/17/19 [Rx] Follow up Appointment(s)/Referral(s): Robert Hendrix DO [Doctor of Osteopathic Medicine] - 1 Week (pulmonray nodules ) iVvek Lares MD [STAFF PHYSICIAN] - 1 Week (gastroenteroloigist ) [facility] [Primary Care Provider] - 1-2 days (the office will contact you for appointment ) Discharge Disposition: HOME SELF-CARE
== END 2019-06-17 15:11 | disposition home or self-care (01) ==
LOC: EC 04:39 → 1SOBS 07:24
PROVIDERS: ADMIT Hospitalist; ATTEND Hospitalist
DX: R10.13 Epigastric pain (principal); R07.89 Other chest pain; D72.829 Elevated white blood cell count, unspecified; I10 Essential (primary) hypertension; K21.9 Gastro-esophageal reflux disease without esophagitis; E27.9 Disorder of adrenal gland, unspecified; K76.89 Other specified diseases of liver; R11.2 Nausea with vomiting, unspecified; E78.5 Hyperlipidemia, unspecified; R91.8 Other nonspecific abnormal finding of lung field; I73.9 Peripheral vascular disease, unspecified; Z87.891 Personal history of nicotine dependence; Z79.82 Long term (current) use of aspirin; Z79.899 Other long term (current) drug therapy
CPT/HCPCS: 96372 ×2; 96375 ×2; 96376 ×3; 96374; 99291; 36415; 93005; 93306; 83880; 80061; 80053; 80048; 82550; 82553; 83690; 83735; 84484; 85025 ×2; 85610; 85730; 71046; 76705; 71275; 74177; G0378 ×3; J2060; J2270 ×4; J1644 ×3; J2405; C9113 ×3; Q9967

== ENCOUNTER → 2019-07-13 | Outpatient (CLI) | payer OTHER ==
--- NOTE | 2019-07-13 13:29 | CT ---
EXAMINATION TYPE: CT chest w con DATE OF EXAM: 07/13/2019 COMPARISON: 06/15/2019 HISTORY: Follow up lung nodules CT DLP: 509.1 mGycm, Automated exposure control for dose reduction was used. CONTRAST: Performed injected with 100 mL of Isovue 300. TECHNIQUE: Axial images were obtained at 5 mm thick sections. Reconstructed images are reviewed on Playfire computer in the coronal plane. FINDINGS: Portion of the thyroid visualized is normal. There is a 0.4 cm nodule within the lateral left lung base. Series 4 image 53. There is a 0.6 cm nodu le within the periphery of the left lower lobe. Series 4 image 54. There is a pleural-based nodule a t the right lateral lung base measuring 0.6 cm. Series 4 image 56. There is some streak opacities within the left lower lobe may be some atelectasis. No enlarged mediastinal or hilar adenopathy is evident. The ascending aorta diameter at the level o f the main pulmonary artery is 3.6 cm. The main pulmonary artery diameter at the bifurcation is 2.[address] sections are obtained through the upper abdomen. Left adrenal gland is enlarged measuring 1.7 cm. IMPRESSIONS: 1. Stable appearing nodules bilateral peripheral lung bases. 2. Streak atelectasis left lower lobe
== END | disposition home or self-care (01) ==
LOC: RADCTMAIN 07:39
PROVIDERS: ATTEND Internal Medicine Critical Care Medicine
DX: R91.8 Other nonspecific abnormal finding of lung field (principal); J98.11 Atelectasis
CPT/HCPCS: 71260; Q9967

== ENCOUNTER 2019-07-16 09:35 | Day surgery (SDC) | payer OTHER ==
[2019-07-12 14:07] VITALS: BMI 28.5
[~2019-07-16 09:35] MED LIST: LACTATED RINGERS 1,000 ML IV SCH
[2019-07-16] MEDS ORDERED: LIDOCAINE 1% 20 ML VIAL (10MG/ML) FOR IV START INTRADERMA ONE (09:55)
[2019-07-16 09:58] VITALS: RESP 16; TEMP 98
[2019-07-16] MEDS ORDERED: MIDAZOLAM 2 MG/2 ML VIAL ONE (11:39)
[2019-07-16] MEDS ORDERED: PROPOFOL 10 MG/ML 20 ML VIAL IV ONE (11:39)
[2019-07-16] MEDS ORDERED: fentaNYL (PF) 50 MCG/ML 2 ML AMP ONE (11:39)
[2019-07-16] MEDS ORDERED: LIDOCAINE 1% INJ 10MG/ML (20 ML MDV) ONE (11:39)
[2019-07-16] MEDS ORDERED: SODIUM CHLORIDE 0.9% 500 ML 500 ML IV ONE ×2 (11:58→13:04)
--- NOTE | 2019-07-16 13:16 | P.PCN ---
Date of Procedure: 07/16/19 Description of Procedure: Brief history: Patient is a pleasant scheduled for an elective upper endoscopy as well as colonoscopy as a part of evaluation of suspected gastric ulcer, epigastric abdominal pain, GERD and history of polyps. Patient denies any prior EGD. Was seen in the observation unit for epigastric abdominal pain at which time he was on H2 sharif therapy which was increased PPI therapy. Reports symptoms are improved since then. Denies any prior colonoscopy. Procedure performed: Esophagogastroduodenoscopy with biopsy Colonoscopy with polypectomy Estimated blood loss: Minimal. Preoperative diagnosis: Suspected gastric ulcer, epigastric pain, GERD, history colon polyps Anesthesia: MAC Procedure: After informed consent was obtained from the patient was brought into the endoscopy unit and IV sedation was administered by anesthesia under continuous monitoring. Initially upper endoscopy was done. The Olympus GF 190 video endoscope was inserted inserted into the mouth and esophagus intubated without any difficulty and was gradually advanced into the stomach and duodenum and carefully examined. The bulb and second part of the duodenum appeared normal, with biopsies taken. The scope was then withdrawn into the stomach adequately insufflated with air and upon careful examination the antrum and body, cardia and fundus appeared normal except for diffuse mild erythema in the antrum and body suggestive of mild gastritis with biopsies of antrum and body taken. The scope was then withdrawn into the esophagus. The GE junction was located at 40 cm to the incisors, with biopsy of an irregular Z line taken to rule out short segment Vasquez's esophagus. It appeared regular with no erythema erosions or ulcerations. Rest of the esophagus appeared normal. Patient tolerated the procedure well. At this time the patient continued to remain sedation. Initial digital rectal examination was normal. Olympus CF 190 video colonoscope was then inserted into the rectum and gradually advanced to the cecum without any difficulty. Careful examination was performed as the scope was gradually being withdrawn. The prep was excellent. The cecum, ascending colon, transverse colon, descending colon, sigmoid colon and rectum appeared normal. 2 diminutive 2 mm ascending colon polyps removed with cold forcep polypectomy. One 5 mm sessile IC valve polyp removed with hot snare polypectomy. 2 small sessile rectal polyps measuring 2 and 3 mm removed with cold snare polypectomy. Retroflexion was performed in the rectum and no lesions were noted. Patient tolerated the procedure well. Impression: 1. Polypectomy of 2 diminutive ascending polyps with cold forcep 2. Polypectomy of one sessile IC valve polyp with hot snare 3. Polypectomy of two small sessile rectal polyps with cold snare. Recommendations: Findings of this examination were discussed with the patient. Okay to resume diet. Await pathology from polypectomies. Anticipate repeat endoscopy in 3 years pending pathology from polypectomies.
[2019-07-16 13:30] VITALS: BP 129/78; PULSE 78
== END 2019-07-16 13:46 | disposition home or self-care (01) ==
LOC: ORWHC2ENDO 09:35
PROVIDERS: ATTEND Internal Medicine
DX: Z12.11 Encounter for screening for malignant neoplasm of colon (principal); K29.50 Unspecified chronic gastritis without bleeding; K20.0 Eosinophilic esophagitis; D12.2 Benign neoplasm of ascending colon; D12.0 Benign neoplasm of cecum; K62.1 Rectal polyp; K21.9 Gastro-esophageal reflux disease without esophagitis; Z86.010 Personal history of colon polyps; Z87.891 Personal history of nicotine dependence; Z83.2 Family history of diseases of the blood and blood-forming organs and certain disorders involving the immune mechanism; E78.5 Hyperlipidemia, unspecified; I73.9 Peripheral vascular disease, unspecified; Z79.82 Long term (current) use of aspirin; Z79.899 Other long term (current) drug therapy
CPT/HCPCS: 45380; 88305; 45385; 43239; J2250; J2001; J3010; J2704

== ENCOUNTER → 2020-01-30 | Outpatient (CLI) | payer OTHER ==
--- NOTE | 2020-01-30 08:06 | CT ---
EXAMINATION TYPE: CT chest w con DATE OF EXAM: 01/30/2020 COMPARISON: Chest CT dated July 13, 2019. HISTORY: Follow up scan per patient. CT DLP: 508.2 mGycm. Automated Exposure Control for Dose Reduction was Utilized. TECHNIQUE: CT scan of the thorax is performed following with IV Contrast, patient injected with 100 mL of Isovue 300. FINDINGS: LUNGS: Mild to borderline moderate underlying emphysematous change with scattered upper lung blebs al robert the periphery. Mild to moderate linear scarring in both bases. No suspicious new nodules or michele s. Stable 4 mm lateral left basilar groundglass nodule image 57. Stable 4 x 4 millimeter subpleural n odule nodular thickening lateral right lung base on axial image 56. No pleural effusion or pneumothor ax seen bilaterally. No suspicious new consolidation or groundglass opacity. MEDIASTINUM: There are no greater than 1 cm hilar or mediastinal lymph nodes. No cardiomegaly or pe ricardial effusion is seen. Coronary artery calcification again seen which is noted marked for under lying coronary artery disease. OTHER: Occasional subcentimeter hypodense lesion left hepatic dome too small to further characterize. Stable 1.6 cm left adrenal mass axial image 65. Slight underlying scoliosis with mild/moderate multi level spurring there is redemonstrated. Small degree of subareolar gynecomastia. Metallic anchors lef t humeral head from prior rotator cuff surgery noted on localizer. IMPRESSION: Chronic changes without acute pulmonary process. Stable under 5 mm nodules presumed benig n. No new suspicious nodules noted.
== END | disposition home or self-care (01) ==
LOC: RADCTMAIN 07:20
PROVIDERS: ATTEND Internal Medicine Critical Care Medicine
DX: R91.8 Other nonspecific abnormal finding of lung field (principal)
CPT/HCPCS: 71260; Q9967

== ENCOUNTER 2022-05-20 09:58 | Day surgery (SDC) | payer OTHER ==
[2022-05-20 10:35] VITALS: TEMP 97.6
[2022-05-20] MEDS ORDERED: PROPOFOL 10 MG/ML 20 ML VIAL IV ONE (11:44)
[2022-05-20] MEDS ORDERED: LIDOCAINE 2% INJ 20 MG/ML (2 ML VIAL) ONE (11:44)
--- NOTE | 2022-05-20 12:02 | P.PCN ---
Date of Procedure: 05/20/22 Procedure(s) Performed: BRIEF HISTORY: Patient is a 56-year-old pleasant white male scheduled for an elective colonoscopy as a part of evaluation of prior history of colon polyps. Last colonoscopy was 3 years ago. PROCEDURE PERFORMED: Colonoscopy snare polypectomy. PREOPERATIVE DIAGNOSIS: History of colon polyps. IV sedation per Anesthesia. PROCEDURE: After informed consent was obtained, the patient, was brought into the endoscopy unit. IV sedation was administered by Anesthesia under continuous monitoring. Digital rectal examination was normal. Initially the Olympus CF-160 flexible video colonoscope was then inserted in the rectum, gradually advanced into the cecum without any difficulty. Careful examination was performed as the scope was gradually being withdrawn. Ileocecal valve and the appendiceal orifice were visualized and appeared normal. Prep was excellent. Mucosa of the cecum, ascending colon, transverse colon, descending colon, sigmoid colon, and rectum appeared normal. 3 Polyps All Measuring 5 Mm in Size Removed by Snare Polypectomy. Retroflexion was performed in the rectum and no lesions were seen. The patient tolerated the procedure well. IMPRESSION: 5 mm 3 proximal rectal polyp status post polypectomy Rest of the colon appeared normal RECOMMENDATIONS: Findings of this examination were discussed with the patient he was advised to follow with the biopsy results. He was advised to have a repeat colonoscopy in 5 years from now because of history of colon polyps.
[2022-05-20 12:21] VITALS: RESP 16
[2022-05-20 12:39] VITALS: BP 120/84; PULSE 66
== END 2022-05-20 12:57 | disposition home or self-care (01) ==
LOC: ORWHC2ENDO 09:58
PROVIDERS: ATTEND Internal Medicine Gastroenterology
DX: Z12.11 Encounter for screening for malignant neoplasm of colon (principal); K62.1 Rectal polyp; Z86.010 Personal history of colon polyps; K21.9 Gastro-esophageal reflux disease without esophagitis; E78.5 Hyperlipidemia, unspecified; Z87.11 Personal history of peptic ulcer disease; Z79.82 Long term (current) use of aspirin; Z79.899 Other long term (current) drug therapy; Z87.891 Personal history of nicotine dependence; Z82.49 Family history of ischemic heart disease and other diseases of the circulatory system
CPT/HCPCS: 88305; 45385; J2704; J2001

== ENCOUNTER → 2022-06-21 | Outpatient (CLI) | payer OTHER ==
--- NOTE | 2022-06-22 07:47 | MR ---
MR left hip without contrast HISTORY: Pain in left hip Multiplanar multisequence imaging obtained through pelvis with small [id number] imaging obtained t hrough the left hip. 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 Subchondral geode formation suspected along the acetabular roof and femoral head, reactiv e marrow signal change. There is abnormal signal involving the acetabular labrum, possible perihilar labral cyst formation suggesting degenerative tear. No sizable joint effusion. Periarticular increase d T2 signal noted laterally, possibly local edema or inflammatory change. No evident fracture or disl ocation. No evident gluteal tendon tear. Origins of the history musculature are normal. Degenerative disc changes are present in the visualize d spine. Some reactive marrow signal changes are present at the sacroiliac joints. No free fluid with in the pelvis. No evident pelvic adenopathy. Prostate appears enlarged. IMPRESSION: Osteoarthritis and additional findings above
--- NOTE | 2022-06-22 07:54 | MR ---
EXAMINATION TYPE: MR lumbar spine wo con DATE OF EXAM: 06/21/2022 COMPARISON: None HISTORY: M 25.552 TECHNIQUE: Multiplanar, multisequence images of the lumbar spine were acquired without IV contrast. L1-L2: Posterior extension endplate disc complex causes minimal anterior mass effect on the thecal sa c. No significant foraminal encroachment. L2-L3: Posterior broad-based disc bulge causes mild anterior mass effect on the thecal sac, circumfer ential extension endplate disc complex towards the right encroaches on the inferior aspect of the adriana ral foramen. There is hypertrophic change of the facets causing minimal posterior lateral mass effect on the thecal sac. L3-L4: Circumferential extension endplate disc complex causes some right-sided foraminal encroachment . Posterior extension endplate disc complex causes mild anterior mass effect on the thecal sac somewh at eccentric towards the right. Facet arthropathy with hypertrophy of ligamentum flavum is noted. L4-L5: Retrolisthesis grade 1 noted, posterior extension endplate disc complex causes mild anterior m ass effect on the thecal sac and contributes to some foraminal encroachment is circumferential extens ion endplate disc complex towards the left. Possible synovial cyst present on the left, there may be some encroachment on the left L5 nerve root. Hypertrophic changes present at the facets, ligamentum f lavum causes some posterior lateral mass effect on the thecal sac which is mild. L5-S1: Normal disc appearance without desiccation. No herniation, protrusion or disc bulging. No ca nal stenosis is present. Foramina are patent bilaterally. There is some facet arthropathy change. Lumbar segments are intact. No paraspinal masses are identified. Conus medullaris has a normal appe arance. There is no significant spinal stenosis. Lumbar vertebral bodies show preserved height. Is mu ltilevel spondylosis with endplate discogenic marrow signal change. Vacuum phenomenon present L4-5, L 3-4, L1 to. T12-L1. There is spinal curvature noted. Some mildly prominent retroperitoneal nodes note d incidentally IMPRESSION: Multilevel degenerative disc disease, facet arthropathy, foraminal encroachment as described. No sign ificant spinal stenosis. Spinal curvature.
== END | disposition home or self-care (01) ==
LOC: RADMRIMAIN 18:16
DX: M51.26 Other intervertebral disc displacement, lumbar region (principal); M47.816 Spondylosis without myelopathy or radiculopathy, lumbar region
CPT/HCPCS: 72148

== ENCOUNTER → 2023-04-04 | Outpatient (CLI) | payer OTHER ==
--- NOTE | 2023-04-04 16:16 | CT ---
EXAMINATION TYPE: CT chest w con DATE OF EXAM: 04/04/2023 COMPARISON: 01/30/2020, 07/13/2019 HISTORY: lung nodule CT DLP: 482.9 mGycm, Automated exposure control for dose reduction was used. CONTRAST: Performed injected with 100 mL of Isovue 300. TECHNIQUE: Axial images were obtained at 5 mm thick sections. Reconstructed images are reviewed on [employer] computer in the coronal plane. FINDINGS: Portion of the thyroid visualized is normal. No suspicious lung nodules or focal infiltrates are present. There is a stable pleural-based nodular density along the right lateral lung base. Series 4 image 53 present previously stable. Scattered Ble bs and bulla are in the upper lung shane. No enlarged mediastinal or hilar adenopathy is evident. The ascending aorta diameter at the level o f the main pulmonary artery is 3.8 cm. The main pulmonary artery diameter at the bifurcation is 2.[address] sections are obtained through the upper abdomen. Scattered cysts appear to be within the l iver. IMPRESSIONS: 1. Stable subcentimeter nodule right lung base.
== END | disposition home or self-care (01) ==
LOC: RADCTMAIN 08:23
DX: R91.1 Solitary pulmonary nodule (principal)
CPT/HCPCS: 71260; Q9967

== ENCOUNTER → 2023-10-16 | Outpatient (CLI) | payer OTHER ==
--- NOTE | 2023-10-16 16:46 | MR ---
EXAMINATION TYPE: MR shoulder RT wo con DATE OF EXAM: 10/16/2023 COMPARISON: Outside right shoulder x-ray September 28, 2023 HISTORY: Right shoulder soreness/pain for 4 months TECHNIQUE: Multiplanar, multisequence imaging of the right shoulder is performed without contrast. FINDINGS: Rotator Cuff: Increased signal in the infraspinatus tendon and to a much greater degree in the supras pinatus tendon. There is partial tearing of the anterior fibers of the supraspinatus tendon. Surround ing fluid is present. Subscapularis tendon is intact with some increased signal and surrounding fluid . Rotator cuff muscle bulk is preserved. Acromioclavicular Joint: Mild to moderate narrowing and mild spurring. Glenohumeral Joint: Small joint effusion. No significant spurring. Labrum: Increased signal superior labrum consistent with degenerative tearing. Biceps Tendon: The long head of biceps is in normal location within bicipital groove. Bone marrow signal: Subchondral cystic change involving the posterior superior humeral head. Other: No additional significant abnormality is appreciated. IMPRESSION: 1. Tendinosis of the rotator cuff tendons as detailed above most prominent involving the supraspinatu s tendon. 2. Superior labral tear likely degenerative in etiology.
== END | disposition home or self-care (01) ==
LOC: RADMRIMAIN 13:54
DX: M67.813 Other specified disorders of tendon, right shoulder (principal); M75.112 Incomplete rotator cuff tear or rupture of left shoulder, not specified as traumatic

== ENCOUNTER → 2024-09-26 | Outpatient (CLI) | payer OTHER | END | disposition home or self-care (01) | LOC: RADMRIMAIN 12:24 | PROVIDERS: ATTEND Family Medicine | DX: M51.369 Other intervertebral disc degeneration, lumbar region without mention of lumbar back pain or lower extremity pain (principal); Z96.642 Presence of left artificial hip joint | CPT/HCPCS: 72148 ==